=== PATIENT | female | born 1995 | race Caucasian/White ===

== ENCOUNTER → 2016-09-21 | Outpatient (CLI) | payer BC ==
--- NOTE | 2016-09-21 14:29 | DIAGNOSTIC IMAGING REPORT ---
LEFT ANKLE 3 VIEWS HISTORY: LEFT ANKLE PAIN COMPARISON: Left ankle 09/23/2009. FINDINGS: There is no fracture or dislocation. Mild anterior soft tissue swelling. The ankle mortise is well-maintained. IMPRESSION: No acute fracture or dislocation within the left ankle. Electronically signed by: Sandro Carter M.D. 09/21/2016 2:27 PM Dictated Date/Time: 09/21/2016 2:25 PM
== END | disposition home or self-care (01) ==
LOC: C.RDSM 09:30
PROVIDERS: ATTEND Physical Medicine & Rehabilitation Sports Medicine
DX: M25.572 Pain in left ankle and joints of left foot (principal)